=== PATIENT | female | born 1965 | race Two or more races ===

== ENCOUNTER 2024-01-16 13:07 | Outpatient (CLI) | payer OTHER | END 2024-01-16 13:18 | disposition home or self-care (01) | LOC: RAD 13:07 | PROVIDERS: ATTEND Orthopaedic Surgery | DX: S52.571A Other intraarticular fracture of lower end of right radius, initial encounter for closed fracture (principal) ==

== ENCOUNTER 2024-01-21 08:12 | Outpatient (CLI) | payer OTHER | END 2024-01-21 08:29 | disposition home or self-care (01) | LOC: TOM 08:12 | PROVIDERS: ATTEND Orthopaedic Surgery | DX: S52.571A Other intraarticular fracture of lower end of right radius, initial encounter for closed fracture (principal) ==

== ENCOUNTER 2024-01-28 08:36 | Outpatient (CLI) | payer OTHER | END 2024-01-28 08:50 | disposition home or self-care (01) | LOC: RAD 08:36 | PROVIDERS: ATTEND Orthopaedic Surgery | DX: S52.571A Other intraarticular fracture of lower end of right radius, initial encounter for closed fracture (principal) ==

== ENCOUNTER 2024-04-15 09:44 | Outpatient (CLI) | payer OTHER ==
[2024-04-15 12:27] LABS: ALBUMIN 3.7 gm/dL (3.4-5.0); BILIRUBIN TOTAL 0.45 mg/dL (0.3-1.2); CALCIUM 8.8 mg/dL (8.5-10.1); CREATININE SERUM 0.83 mg/dL (0.55-1.02); GFR 69.89; GLOBULINA 3.2 G/DL (2.4-3.5); MAGNESIUM 2.1 mg/dL (1.8-2.4); PHOSPHOROUS 3.4 mg/dL (2.5-4.9); POTASSIUM 3.95 mEq/L (3.5-5.1); TOTAL PROTEIN 6.9 gm/dL (6.4-8.2)
== END 2024-04-15 10:04 | disposition home or self-care (01) ==
LOC: LAB 09:44
PROVIDERS: ATTEND Orthopaedic Surgery
DX: E55.9 Vitamin D deficiency, unspecified (principal); M85.9 Disorder of bone density and structure, unspecified; E56.1 Deficiency of vitamin K; E21.3 Hyperparathyroidism, unspecified; E88.89 Other specified metabolic disorders; M81.8 Other osteoporosis without current pathological fracture; M25.551 Pain in right hip; M25.552 Pain in left hip; M54.50 Low back pain, unspecified